=== PATIENT | female | born 1970 | race Caucasian/White ===

== ENCOUNTER 2017-05-09 17:46 | Emergency (ER) | payer OTHER ==
[2017-05-09 17:58] VITALS: O2SAT 100
--- NOTE | 2017-05-09 19:47 | C.PDOC ---
History Of Present Illness 46 year old female who was sent to the ER by her Food Porter after she went in for a routine appointment and was found to have her blood pressure elevated. Patient reports she has been having upper back pain for the week; she states her PMD gave her an Rx for a lidocaine which she has been applying at night with relief to pain. Denies recent trauma, chest pain, SOB, weakness, or numbness. Time Seen by Provider: 05/09/17 18:13 Chief Complaint (Nursing): Upper Extremity Problem/Injury History Per: Patient History/Exam Limitations: no limitations Onset/Duration Of Symptoms: Days (7) Current Symptoms Are (Timing): Still Present Quality Of Discomfort: Unable To Describe Previous Symptoms: None Associated Symptoms: None Exacerbating Factor(s): Turning Recent travel outside of the [place]: No Past Medical History Reviewed: Historical Data, Nursing Documentation, Vital Signs Vital Signs: Last Vital Signs Temp 98.6 F 05/09/17 17:56 Pulse 100 H 05/09/17 17:56 Resp 20 05/09/17 17:56 BP 135/78 05/09/17 17:56 Pulse Ox 100 05/09/17 20:03 - Medical History PMH: Back Problems, HTN Surgical History: No Surg Hx Family History: States: Unknown Family Hx - Social History Hx Tobacco Use: No Hx Alcohol Use: No Hx Substance Use: No Review Of Systems Except As Marked, All Systems Reviewed And Found Negative. Cardiovascular: Negative for: Chest Pain Respiratory: Negative for: Shortness of Breath Musculoskeletal: Positive for: Back Pain Neurological: Negative for: Weakness, Numbness Physical Exam - Physical Exam Appears: Non-toxic Skin: Normal Color, Warm, Dry Head: Atraumatic, Normacephalic Oral Mucosa: Moist Neck: Normal, Supple Respiratory: Other (Speaking in complete sentences, no respiratory distress) Back: Muscle Spasm (Left mid parascapular region w/ knot, pain reproducible with palpation) Extremity: Normal ROM (x4) Neurological/Psych: Oriented x3, Normal Speech, Normal Cognition ED Course And Treatment O2 Sat by Pulse Oximetry: 100 (Room air) Pulse Ox Interpretation: Normal Medical Decision Making Medical Decision Making: Plan: * Flexeril * Toradol Disposition Counseled Patient/Family Regarding: Diagnosis, Need For Followup, Rx Given - Disposition Referrals: YOUR,PMD [Other] Disposition: HOME/ ROUTINE Disposition Time: 19:46 Condition: IMPROVED Prescriptions: Cyclobenzaprine [Flexeril] 10 mg PO TID #15 tab Ibuprofen [Motrin] 600 mg PO Q6 #30 tab Instructions: Muscle Spasm (ED) Forms: [facility] (Latvian) Print Language: GREENLANDIC - Clinical Impression Clinical Impression: Back pain - Scribe Statement The provider has reviewed the documentation as recorded by the Scribe Jesse Asher All medical record entries made by the Jajaibe were at my direction and personally dictated by me. I have reviewed the chart and agree that the record accurately reflects my personal performance of the history, physical exam, medical decision making, and the department course for this patient. I have also personally directed, reviewed, and agree with the discharge instructions and disposition.
[2017-05-09 20:36] VITALS: BP 130/69; PULSE 85; RESP 16; TEMP 98
== END 2017-05-09 19:55 | disposition home or self-care (01) ==
LOC: C.ER 17:46
DX: M54.89 Other dorsalgia (principal)
CPT/HCPCS: 96372; 99284; J1885

== ENCOUNTER 2017-12-05 10:40 | Emergency (ER) | payer OTHER ==
[2017-12-05 11:23] VITALS: BP 149/93; PULSE 61; RESP 18; TEMP 98.4; O2SAT 100
[2017-12-05] MEDS ORDERED: Acetaminophen-Codeine 300/30 mg Tab PO STA (11:52)
[2017-12-05] MEDS ORDERED: Acetaminophen-Codeine 300/30 mg Tab PO ONE (12:14)
--- NOTE | 2017-12-05 12:34 | C.PDOC ---
History Of Present Illness 47 year old female presents to the ED for evaluation of left foot pain which began 3 days ago. Patient has not taken any medicine for pain. She denies fever , chills, trauma/injuries, falls, or history of DVT/PE. Time Seen by Provider: 12/05/17 11:29 Chief Complaint (Nursing): Lower Extremity Problem/Injury History Per: Patient History/Exam Limitations: no limitations Onset/Duration Of Symptoms: Days (3) Current Symptoms Are (Timing): Still Present - Knee Description Of Injury: denies: Fell, Struck With Object, Struck Against Object, Twisted, Laceration Past Medical History Reviewed: Historical Data, Nursing Documentation, Vital Signs Vital Signs: Last Vital Signs Temp 98.4 F 12/05/17 11:14 Pulse 61 12/05/17 11:14 Resp 18 12/05/17 11:14 BP 149/93 H 12/05/17 11:14 Pulse Ox 100 12/05/17 12:46 - Medical History PMH: Back Problems, HTN Surgical History: No Surg Hx Family History: States: Unknown Family Hx - Social History Hx Tobacco Use: No Hx Alcohol Use: No Hx Substance Use: No Review Of Systems Constitutional: Negative for: Fever, Chills Musculoskeletal: Positive for: Foot Pain (left) Physical Exam - Physical Exam Appears: Non-toxic, No Acute Distress Skin: Normal Color, Warm, Dry, No Other (erythema or cellulitis to left foot) Extremity: Normal ROM, Tenderness (to left dorsal foot and left medial malleolus ), Capillary Refill (less than 2 seconds ), No Swelling (calf), No Other (palpable cord ) Pulses: Left Dorsalis Pedis: Normal Neurological/Psych: Oriented x3, Normal Speech, Normal Cognition, Normal Sensation Gait: Steady ED Course And Treatment O2 Sat by Pulse Oximetry: 100 (on RA) Pulse Ox Interpretation: Normal Medical Decision Making Medical Decision Making: Assessment: Foot and ankle pain Progress: Left foot XR and left ankle XR ordered and reviewed. Motrin PO and Tylenol/Codeine PO administered. Preliminary read of XR shows no fracture. On reassessment, patient is resting comfortably, showing no signs of distress and reports an improvement in her pain. Patient is advised to f/u with Dr. Pink (orthopedist automobile sales consultant) within 2 days for further evaluation. Disposition Counseled Patient/Family Regarding: Studies Performed, Diagnosis, Need For Followup, Rx Given - Disposition Referrals: Osvaldo Pink III, MD [Staff Provider] - Disposition: HOME/ ROUTINE Disposition Time: 12:32 Condition: STABLE Additional Instructions: follow up with your doctor in 2 days call to make an appointment take medications as prescribed return to ER if symptoms worsens or progress Prescriptions: Acetaminophen/Codeine [Tylenol/Codeine 300 MG/30 MG] 1 tab PO Q6H PRN #12 tab PRN Reason: Pain, Severe (8-10) Naproxen [Naprosyn] 500 mg PO BID PRN #16 tab PRN Reason: Pain, Moderate (4-7) Instructions: Joint Pain Forms: General Discharge Instructions, [facility] (Barbadian) - Clinical Impression Clinical Impression: Joint pain - Scribe Statement The provider has reviewed the documentation as recorded by the Scribe (Yue Kaba) Provider Attestation: All medical record entries made by the Scribe were at my direction and personally dictated by me. I have reviewed the chart and agree that the record accurately reflects my personal performance of the history, physical exam, medical decision making, and the department course for this patient. I have also personally directed, reviewed, and agree with the discharge instructions and disposition.
--- NOTE | 2017-12-05 14:50 | RAD ---
PROCEDURE: Left Ankle Radiographs. HISTORY: Pain COMPARISON: None available. FINDINGS: BONES: No acute displaced fracture. JOINTS: No dislocation. SOFT TISSUES: Unremarkable. No evidence of radiopaque foreign body. OTHER FINDINGS: None. IMPRESSION: No acute displaced fracture, dislocation, or significant joint effusion identified. If symptoms persist or if there is clinical concern, x-ray follow-up in 7-10 days should be considered.
--- NOTE | 2017-12-05 14:51 | RAD ---
PROCEDURE: Left Foot Radiographs. HISTORY: pain COMPARISON: None available. FINDINGS: BONES: No acute displaced fracture. JOINTS: No dislocation. SOFT TISSUES: Unremarkable. No evidence of radiopaque foreign body. OTHER FINDINGS: None. IMPRESSION: No acute displaced fracture, dislocation, or significant joint effusion identified. If symptoms persist, or if there is continued clinical concern, x-ray follow-up in 7-10 days should be considered.
== END 2017-12-05 13:04 | disposition home or self-care (01) ==
LOC: C.ER 10:40
DX: M25.572 Pain in left ankle and joints of left foot (principal)